=== PATIENT | male | born 1955 | race Caucasian/White ===

== ENCOUNTER 2025-01-25 16:34 | Emergency (ER) | payer OTHER, SELFPAY ==
[2025-01-25 16:49] VITALS: BP 137/90
[2025-01-25] MEDS: KEFLEX 500 MG PO (19:36)
[2025-01-25] MEDS: ADACEL 0.5 ML IM (19:37)
--- NOTE | 2025-01-25 22:35 | ED.GENMED ---
History of Present Illness
General
Chief Complaint: Skin Surface Trauma
Source: patient
Exam Limitations: none
Time Seen by Provider: 01/25/25 18:57
Nursing documentation reviewed up to this point in time: agreed with
History of Present Illness
History of Present Illness:
69-year-old male presenting to the emergency department today with concerns of a laceration to his right index finger from a wood splitter just prior to arrival. Denies any significant foreign bodies. And is unsure when his last tetanus shot was.
He denies any difficulty with movement of the finger or additional injuries
Review of Systems
Review of Systems
Allergies reviewed?: Yes
All Other Systems: ROS reviewed and negative except as documented in HPI and ROS
Phy Exam
Physical Exam
Physical Exam:
GENERAL: Alert , in no apparent distress
EYE: pupils equal and reactive
NECK: Supple, no significant adenopathy.
ENT: o/p clr, mmm.
CARDIAC: Regular rate and rhythm .
LUNGS: Clear breath sounds bilaterally, no acute respiratory distress, no wheezes/rales/rhonchi
ABDOMEN: Soft, without focal tenderness, no r/g, no cvat
NEUROLOGICAL: Alert and oriented, no focal neuro deficits
SKIN: Ulcerative laceration to the right index finger overlying the dorsal aspect of the PIP joint. Warm and dry, skin intact.
MUSCULOSKELETAL: No edema, well perfused.
PSYCH: Normal and appropriate interaction.
Course
Orders/Labs/Results
Orders:
Orders
01/25/25 19:09
Cephalexin Monohydrate [Keflex] 500 mg PO NOW STA
Tetanus/Diphth/Acelpertussis [Adacel] 0.5 ml IM .ONCE ONE
CR Hand - Right Min 3 Views Urgent
Comment:
Reason For Exam: index finger laceration
Vital Signs
Initial and Last Documented VS:
Initial Vital Signs
Temp Pulse Resp BP Pulse Ox
98.8 F 71 17 137/90 99
01/25/25 16:49 01/25/25 16:49 01/25/25 16:49 01/25/25 16:49 01/25/25 16:49
Last Documented Vital Signs
Temp Pulse Resp BP Pulse Ox
98.8 F 70 18 147/92 97
01/25/25 16:49 01/25/25 23:53 01/25/25 23:53 01/25/25 23:53 01/25/25 23:53
Procedures
Laceration Closure
Right Dorsal Second Finger:
Status of Wound: clean
Size of Wound in cm: 2.5
Description of Wound Edges: sharp
Preparation: cleaned with saline
Anesthesia: 1% Lidocaine and Digital-Regional
Revision/Debridement: routine- no revision and irrigate-direct pressure
Wound exploration: explored to base- no FB and no tendon involvement
Type of Closure: single layer closure and interrupted sutures
Skin Closure Material: 4-0 nylon
Number of sutures: 4
MDM/Problems Addressed
MDM/Problems Addressed:
61-year-old male presenting to the emergency department today with concerns of an injury from a wood splinter machine to his right index finger prior to arrival. Did sustain a laceration overlying the PIP. X-ray was performed that did not show
evidence of underlying bony injury or joint injury. He was given a dose of Keflex as well as tetanus shot. Prior to further assessment after the x-ray the patient left the ER but did not tell any staff. His listed phone number was contacted he
did not answer. Voicemail was left. There is plan to treat with ongoing antibiotic considering its potential dirty mechanism and wound of his hand. He was also recommended to have this primarily closed. He was given information to call back to
the ER if he does call back to be recommended to take antibiotics and if out of the window for primary closure to keep the area wrapped and clean
Patient was apparently still in the ER was then reassessed laceration was closed with 9 stitches otherwise stable for discharge. Dissolvable stitches were used as he claims he was not going to be able to get follow-up.
*Pulse Oximetry
SaO2: 99
Oxygen Mode of Delivery: Room air
Patient hypoxic: no (97)
*Critical Care Note
Total Time (30-74mins, 75-104mins- exclusive of procedures): Not Applicable
ED Attending Note
-
Portions of this chart may have been created with voice recognition software.� Occasional wrong word or��sound alike� substitutions may have occurred due to the inherent limitations of voice recognition software.
Discharge Plan
Departure
Patient Disposition: Home (Routine Discharge)
Date of Disposition: 01/25/25
Time of Disposition: 23:55
Patient with high blood pressure during this ER visit?: No
Condition: Good
Covid-19: Not Applicable
Discharge Problem:
Finger laceration
Instructions: Wound Care (DC), Laceration Repair With Stitches (DC)
Prescriptions:
New
cephalexin 500 mg capsule
500 mg PO TID 5 Days Qty: 15 0RF
Referrals:
Toni Da Silva MD [Family Provider, Internal Medicine]
Activity Restrictions/Additional Instructions:
You came to the emergency department today with concerns of laceration to your finger. Here had reassuring x-ray this was cleaned and closed with 9 stitches. Please keep the area clean covered and follow-up if there is any evidence of redness
swelling or warmth or any concerns.
Interventions
Interventions:
*General Assessment Last Done: 01/25/25 16:51
*Neglect/Abuse Screening Last Done: 01/25/25 16:51
*ED COVID-19 Vaccine History Last Done: 01/25/25 16:51
*ED Influenza Vaccine History Last Done: 01/25/25 16:51
*Risk Screen - Suicide (C-SSRS) Last Done: 01/25/25 16:51
*Nursing Disposition Last Done: 01/25/25 20:54
ED-Skin Assessment Last Done: 01/25/25 19:40
Discharge Date and Time
Print Language: TANZANIAN
[2025-01-25 23:53] VITALS: BP 147/92
== END 2025-01-26 00:13 | disposition home or self-care (01) ==
LOC: EMR 16:34
PROVIDERS: EMERGENCY PHYSICIAN Student in an Organized Health Care Education/Training Program; FAMILY PHYSICIAN Internal Medicine
DX: S61.210A Laceration without foreign body of right index finger without damage to nail, initial encounter (principal); W27.8XXA Contact with other nonpowered hand tool, initial encounter; Z23 Encounter for immunization
CPT/HCPCS: 12001; 90471; 99283; 73130; 90715